=== PATIENT | female | born 2000 | race Caucasian/White ===

== ENCOUNTER 2020-09-26 03:10 | Emergency (ER) | payer SELFPAY ==
[~2020-09-26] VITALS: Ht 160 cm; Wt 77.1 kg
[2020-09-26 03:15] VITALS: BP 110/79
--- NOTE | 2020-09-26 03:18 | NUR ---
TO CHAIR A AMBULATORY WITH [facility]
[2020-09-26] MEDS ORDERED: LIDOCAINE/EPI 1% 1:100000 20 ML VIAL INJ ONE (03:40)
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
--- NOTE | 2020-09-26 03:48 | NUR ---
Patient has a 3 cm laceration to HEAD. Dr. FUNK applied sutures using sterile technique. Edges well approximated. Site cleansed with IODINE. No bleeding noted. Pt tolerated well.
[2020-09-26] MEDS ORDERED: ACETAMINOPHEN EXTRA STRENGTH 500 MG TAB PO ONE (04:10)
[2020-09-26] MEDS ORDERED: IBUPROFEN 600 MG TAB PO ONE (04:10)
[2020-09-26 04:25] VITALS: BP 110/79
--- NOTE | 2020-09-26 04:25 | NUR ---
Patient discharged with v/s stable. Written and verbal after care instructions given and explained. Patient alert, oriented and verbalized understanding of instructions. Ambulatory with steady gait. All questions addressed prior to discharge. ID band removed. Patient advised to follow up with PMD. Rx of MOTRIN AND NORCO given. Patient educated on indication of medication including possible reaction and side effects. Opportunity to ask questions provided and answered.
== END 2020-09-26 04:25 | disposition home or self-care (01) ==
LOC: MED 03:10
DX: S01.01XA Laceration without foreign body of scalp, initial encounter (principal); Y04.0XXA Assault by unarmed brawl or fight, initial encounter; Y93.89 Activity, other specified; Y92.89 Other specified places as the place of occurrence of the external cause; Y99.8 Other external cause status
CPT/HCPCS: 12002; 99283; J2001